=== PATIENT | female | born 1970 ===

== ENCOUNTER 2018-11-04 15:42 | Outpatient (CLI) | payer OTHER | END 2018-11-04 15:43 | disposition home or self-care (01) | LOC: C.LAB 15:42 | DX: D50.9 Iron deficiency anemia, unspecified (principal) ==

== ENCOUNTER 2019-01-24 14:36 | Outpatient (CLI) | payer OTHER | END 2019-01-24 14:37 | disposition home or self-care (01) | LOC: C.MAMMO 14:37 | DX: R92.8 Other abnormal and inconclusive findings on diagnostic imaging of breast (principal) ==

== ENCOUNTER 2019-02-02 15:20 | Outpatient (CLI) | payer OTHER | END 2019-02-02 15:21 | disposition home or self-care (01) | LOC: C.LAB 15:20 | DX: D50.9 Iron deficiency anemia, unspecified (principal) ==

== ENCOUNTER 2019-02-02 15:23 | Outpatient (CLI) | payer OTHER | END 2019-02-02 15:24 | disposition home or self-care (01) | LOC: C.LAB 15:23 → C.RADH 15:24 ==